=== PATIENT | female | born 1960 | race Caucasian/White ===

== ENCOUNTER 2018-07-22 07:45 | Emergency (ER) | payer OTHER ==
[~2018-07-22] VITALS: Ht 157.5 cm; Wt 59.0 kg
--- OUTSIDE RECORDS SUMMARY | ~2018-07-22 | XMS | Clinical Summary ---
Demographics + + + | Address | [address] | | | [place] [address] | + + + | Home Phone | | + + + | Preferred Language | Unknown | + + + | Marital Status | | + + + | Methodist Affiliation | Unknown | + + + | Race | Unknown | + + + | Ethnic Group | Unknown | + + + Author + + + | Author | [facility] | | | and [place] | + + + | Organization | [facility] | | | and [place] | + + + | Address | Unknown | + + + | Phone | Unavailable | + + + Support + + + + + | Name | Relationship | Address | Phone | + + + + + | Juanito Acuna | ECON | [address] | | | | | [place] | | | | | [address] | | + + + + + | Prachi Deleon | ECON | Unknown | | + + + + + Care Team Providers + +------+ + | Care Telephone Directory Deliverer Name | Role | Phone | + +------+ + | Tao Huerta | PP | | | MD | | | + +------+ + Allergies + + + + + + | Active Allergy | Reactions | Severity | Noted | Comments | | | | | Date | | + + + + + + | Bee Venom | Shortness Of Breath | High | 05/18/19 | | | | | | 16 | | + + + + + + | Codeine | Diarrhea, Nausea And | Medium | 05/18/19 | | | | Vomiting | | 16 | | + + + + + + Medications + + + +---------+------+------+-------+ | Medication | Sig | Dispensed | Refills | Star | End | Statu | | | | | | t | Date | s | | | | | | Date | | | + + + +---------+------+------+-------+ | liothyronine | Take 12.5 mcg by | | 0 | | | Activ | | (CYTOMEL) 25 mcg | mouth Daily. | | | | | e | | tablet | | | | | | | + + + +---------+------+------+-------+ | levothyroxine | Take 75 mcg by mouth | | 0 | | | Activ | | (SYNTHROID, | every morning | | | | | e | | LEVOTHROID) 75 MCG | (before breakfast). | | | | | | | tablet | | | | | | | + + + +---------+------+------+-------+ | Multiple | Take 1 tablet by | | 0 | | | Activ | | Vitamins-Minerals | mouth Daily. | | | | | e | | (CENTRUM SILVER | | | | | | | | ULTRA WOMENS) TABS | | | | | | | + + + +---------+------+------+-------+ | alendronate | Take 70 mg by mouth | | 0 | 05/0 | | Activ | | (FOSAMAX) 70 mg | every 7 days. | | | 20 | | e | | tablet | Patient takes | | | 17 | | | | | medication every | | | | | | | | Wednesday | | | | | | + + + +---------+------+------+-------+ | | Take by mouth | | 0 | | | Activ | | Glucosamine-Chondroi | Daily. | | | | | e | | tin (OSTEO BI-FLEX | | | | | | | | REGULAR STRENGTH PO) | | | | | | | + + + +---------+------+------+-------+ | Calcium | Take 1,200 mg by | | 0 | | | Activ | | Carbonate-Vit D-Min | mouth Daily. | | | | | e | | (CALCIUM 1200 PO) | | | | | | | + + + +---------+------+------+-------+ | docusate calcium | Take 240 mg by mouth | | 0 | | | Activ | | (STOOL SOFTENER) 240 | once. | | | | | e | | mg capsule | | | | | | | + + + +---------+------+------+-------+ | oxyCODONE | Take 0.5-1 tablets | 90 | 0 | 11/1 | | Activ | | (ROXICODONE) 15 mg | by mouth every 4 | tablet | | 4/20 | | e | | immediate release | hours as needed for | | | 17 | | | | tablet | Pain. | | | | | | + + + +---------+------+------+-------+ | diazePAM (VALIUM) | Take 1 tablet by | 90 | 0 | 11/1 | | Activ | | 5 mg tablet | mouth every 6 hours | tablet | | 4/20 | | e | | | as needed for Muscle | | | 17 | | | | | spasms. 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 - Oct 2016 | 11/08/2016 | + + + | H/O Cervical Fusion ACDF C3-5 2015 | 03/03/2016 | + + + + + | Overview: C3-4, C4-5 Anterior Cervical Discectomy W/ Fusion | | And Plating 07/05/2015 | + + + + + | Smoker - Daily | 03/03/2016 | + + + | H/O Bee sting allergy | 03/03/2016 | + + + | Dysphagia - Feb 2016 | 03/03/2016 | + + + | Spinal stenosis, cervical region | | + + + | Arthralgia of multiple sites | | + + + | Hiatal hernia | | + + + | Primary hypothyroidism | | + + + | Vitamin D deficiency | | + + + | Lumbago | | + + + | Cervicalgia | | + + + | Pain in thoracic spine | | + + + | History of tobacco use | | + + + | Brachial neuritis or radiculit due to rupt cervical intervertebr | | | disc | | + + + Family History + + +------+ + | Medical History | Relation | Name | Comments | + + +------+ + | Hypertension | Brother | | | + + +------+ + | Alcohol abuse | Brother | | | + + +------+ + | Alcohol abuse | Brother | | | + + +------+ + | Alcohol abuse | Father | | | + + +------+ + | Hypertension | Father | | | + + +------+ + | Stroke | Father | | | + + +------+ + | Arthritis | Mother | | | + + +------+ + | Heart disease | Mother | | | + + +------+ + | Hypertension | Mother | | | + + +------+ + + +------+ + + | Relation | Name | Status | Comments | + +------+ + + | Brother | | Alive | | + +------+ + + | Brother | | | | + +------+ + + | Brother | | | | + +------+ + + | Brother | | | | + +------+ + + | Brother | | | | + +------+ + + | Child | | Alive | | + +------+ + + | Child | | Alive | | + +------+ + + | Father | | | | | | | (Age | | | | | 72) | | + +------+ + + | Mother | | | BOWEL [employer]STRUCTION | | | | (Age | | | | | 71) | | + +------+ + + Social History + + + +--------+ + | Tobacco Use | Types | Packs/Day | Years | Date | | | | | Used | | + + + +--------+ + | Former Smoker | Cigarettes | 1 | 40 | 04/29/1975 - | | | | | | 03/29/2016 | + + + +--------+ + + +---+---+---+ | Smokeless Tobacco: | | | | | Never Used | | | | + +---+---+---+ + + | Comments: Smokes every robin | + + + + +---------+ + | Alcohol Use | Drinks/We | oz/Week | Comments | | | ek | | | + + +---------+ + | No | 7 | 4.2 | Patient has recently stopped drinking in | | | Glasses | | the last four weeks 02/09/17 | | | of wine | | | | | 0 | | | | | Standard | | | | | drinks or | | | | | | | | | | equivalen | | | | | t | | | + + +---------+ + + + + | Sex Assigned at | Date Recorded | | | | + + + | Not on file | | + + + + + + + | Job Start Date | Occupation | Industry | + + + + | Not on file | Not on file | Not on file | + + + + + + + + | Travel History | Travel Start | Travel End | + + + + + + | No recent travel history available. | + + Last Filed Vital Signs + + + + | Vital Sign | Reading | Time Taken | + + + + | Blood Pressure | 121/64 | 02/09/2017799 PST | + + + + | Pulse | 78 | 02/09/2017799 PST | + + + + | Temperature | 36.9 C (98.4 F) | 11/12/201637 PDT | + + + + | Respiratory Rate | 16 | 11/12/2016736 PDT | + + + + | Oxygen Saturation | 98% | 11/12/2016736 PDT | + + + + | Inhaled Oxygen | - | - | | Concentration | | | + + + + | Weight | 53.1 kg (117 lb) | 02/09/2017799 PST | + + + + | Height | 152.4 cm (5') | 02/09/2017799 PST | + + + + | Body Mass Index | 22.85 | 02/09/2017799 PST | + + + + Plan of Treatment + + + + + | Health Maintenance | Due Date | Last Done | Comments | + + + + + | Hepatitis C | | | | | Screening | 3 | | | + + + + + | Vaccine: | | | | | Dtap/Tdap/Td (1 - | 2 | | | | Tdap) | | | | + + + + + | Cervical Cancer | | | | | Screening (Pap) | 3 | | | + + + + + | Breast Cancer | | | | | Screening (Ages | 3 | | | | 50-74) | | | | + + + + + | Colorectal Cancer | | | | | Screening | 3 | | | | (Colonoscopy) | | | | + + + + + | Vaccine: Zoster (1 | | | | | of 2) | 3 | | | + + + + + | Lung Cancer | | | | | Screening | 8 | | | + + + + + | Vaccine: Influenza | | | | | (Season Ended) | 9 | | | + + + + + Implants + +--------+--------+ +--------+--------+--------+ | Implanted | Type | Area | Manufacture | Device | Shelf | Model | | | | | r | | Expira | / | | | | | | Identi | tion | Serial | | | | | | fier | Date | / Lot | + +--------+--------+ +--------+--------+--------+ | Imp Spn Spcr 8x11mm - | Generi | N/A: | [employer] - | | 04/02/ | [id number] | | [id number]: Qty: 1 on | c | Spine | MEDT | | 2023 | 1 / | | 07/05/2015 by Zac Smith | | Antonyic | | | | /[id number] | | DO Jennifer | | al | | | | 864 | + +--------+--------+ +--------+--------+--------+ | Strut Anatomic Peek [id number] | Generi | N/A: | [employer] - | | 03/01/ | [id number] | | - [id number]: Qty: 1 | c | Spine | MEDT | | 2022 | 1 / | | on 07/05/2015 by Sarah, | Prashanth Tolbert | | | | /[id number] | | Zac Rodriguez DO | | al | | | | | + +--------+--------+ +--------+--------+--------+ | Imp Spn Spcr 8x11mm - | Generi | N/A: | [employer] - | | 09/26/ | [id number] | | [id number]: Qty: 1 on | c | Spine | MEDT | | 2022 | 1 / | | 07/05/2015 by Zac Smith | | Cervic | | | | /[id number] | | A DO | | al | | | | 876 | + +--------+--------+ +--------+--------+--------+ | Pablito Precut Ti 3.5x50mm - | Generi | N/A: | [employer] - | | | [id number] | | [id number]: Qty: 2 on | c | Spine | MEDT | | | 0 / / | | 11/09/2016 by Zac Smith | | Antonyic | | | | | | Jennifer DO | | al | | | | | + +--------+--------+ +--------+--------+--------+ | Michael Herrmann Pls 1cc Aseptic | Graft | N/A: | [employer] - | | 01/22/ | [id number] | | - [id number]: Qty: | | Spine | MEDT | | 2017 | | | 1 on 07/05/2015 by Sarah, | | Antonyic | | | | /[id number] | | Zac Rodriguez DO | | al | | | | 7-167 | | | | | | | | / | + +--------+--------+ +--------+--------+--------+ | Putty [place] 10cc Dbm - | Graft | N/A: | [employer] - | | 07/20/ | [id number] | | [id number]: Qty: 1 | | Spine | MEDT | | 2020 | | | on 11/09/2016 by Sarah, | | Tomasz | | | | /[id number] | | Zac Rodriguez DO | | al | | | | 7-040 | | | | | | | | / | + +--------+--------+ +--------+--------+--------+ | Plate Cerv [place] Trans | Plate | N/A: | [employer] | | | [id number] | | 40mm - [id number]: | | Spine | DANEK - DIV | | | 0 / / | | Qty: 1 on 07/05/2015 by | | Tomasz | [employer] | | | | | Zac Smith DO | | al | - SFDK | | | | + +--------+--------+ +--------+--------+--------+ | Plate Ant [place] Cerv | Plate | N/A: | [employer] - | | | [id number] | | 37.5mm - [id number]: | | Spine | MEDT | | | 7 / / | | Qty: 1 on 11/09/2016 by | | Antonyic | | | | | | Zac Smith DO | | al | | | | | + +--------+--------+ +--------+--------+--------+ | Screw Slf-Drl V/A 4.0x16mm - | Screw | N/A: | [employer] | | | [id number] | | [id number]: Qty: 2 on | | Spine | DANEK - DIV | | | 6 / / | | 07/05/2015 by Zac Smith | | Cervic | [employer] | | | | | A, DO | | al | - SFDK | | | | + +--------+--------+ +--------+--------+--------+ | Screw Slf-Drl V/A 4.0x15mm - | Screw | N/A: | SOFAMOR | | | [id number] | | [id number]: Qty: 2 on | | Spine | DANEK - DIV | | | / / | | 07/05/2015 by Zac Smith | | Cervic | [employer] | | | | | A, DO | | al | - SFDK | | | | + +--------+--------+ +--------+--------+--------+ | Screw Slf-Dr V/A 4.5x15mm - | Screw | N/A: | [employer] - | | | [id number] | | [id number]: Qty: 4 on | | Spine | MEDT | | | 5 / / | | 11/09/2016 by Zac Smith | | Tomasz | | | | | | DO Jennifer | | al | | | | | + +--------+--------+ +--------+--------+--------+ | Screw Typecasting Machine Operator-Flaco Vertex 3.5x12mm | Screw | N/A: | SOFAMOR | | | [id number] | | - [id number]: Qty: 1 | | Spine | DANEK - DIV | | | 2 / / | | on 11/09/2016 by Sarah, | | oTmasz | [employer] | | | | | Zac Rodriguez DO | | claudia | - SFDK | | | | + +--------+--------+ +--------+--------+--------+ | Screw Typecasting Machine Operator-Flaco Vertex 3.5x14mm | Screw | N/A: | [employer] - | | | [id number] | | - [id number]: Qty: 4 | | Spine | MEDT | | | 4 / / | | on 11/09/2016 by Sarah, | | Tomasz | | | | | | Zac Rodriguez DO | | al | | | | | + +--------+--------+ +--------+--------+--------+ | Screw Typecasting Machine Operator-Flaco Vertex 3.5x16mm | Screw | N/A: | [employer] - | | | [id number] | | - [id number]: Qty: 3 | | Spine | MEDT | | | 6 / / | | on 11/09/2016 by Sarah, | | Tomasz | | | | | | Zac Rodriguez DO | | al | | | | | + +--------+--------+ +--------+--------+--------+ | Set Screw Vertex Max - | Screw | N/A: | SOF[facility]OR | | | [id number] | | [id number]: Qty: 8 on | | Spine | DANEK - DIV | | | 5 / / | | 11/09/2016 by Zac Smith | | Tomasz | [employer] | | | | | DO Jennifer | | al | - SFDK | | | | + +--------+--------+ +--------+--------+--------+ + +-------+--------+ +--------+--------+--------+ | Explanted | Type | Area | Manufacture | Device | Shelf | Model | | | | | r | | Expira | / | | | | | | Identi | tion | Serial | | | | | | fier | Date | / Lot | + +-------+--------+ +--------+--------+--------+ | Screw Typecasting Machine Operator-Flaco Vertex 3.5x12mm | Screw | N/A: | SOF[employer]OR | | | [id number] | | - [id number]: Qty: 1 | | Spine | DANEK - DIV | | | 2 / / | | on 11/09/2016 | | Cervic | [employer] | | | | | | | al | - SFDK | | | | + +-------+--------+ +--------+--------+--------+ Results Not on filefrom Last 3 Months Insurance + +--------+ +--------+ +---------+------+ | Payer | Benefi | Subscriber | Effect | Phone | Address | Type | | | t Plan | ID | javier | | | | | | / | | Dates | | | | | | Group | | | | | | + +--------+ +--------+ +---------+------+ | [facility] | PHP | [id number] | 03/29/19 | [phone] | | PPO | | PLAN | PERSON | | 16-Pre | 5 | | | | | AL | | sent | | | | | | OPEN | | | | | | | | OPTION | | | | | | + +--------+ +--------+ +---------+------+ + +--------+ +--------+ + + | Guarantor Name | Accoun | Relation to | Date | Phone | Billing Address | | | t Type | Patient | of | | | | | | | | | | + +--------+ +--------+ + + | Mallory Acuna | Person | Self [birth year] | [address] | | | al/Fam | | 1961 | [phone] | [place] [address] | | | maik | | | 4 (Home) | | + +--------+ +--------+ + + Advance Directives Patient has advance care planning documents, and code status on file. For more information, please contact:[facility] [place] [facility] [place] [address] + + + + + | Code Status | Date | Date | Comments | | | Activated | Inactivated | | + + + + + | Full Code | 11/09/2016 | 11/12/2016 | | | | 11:36 | 12:52 | | + + + + + + + + +---+ | | | | | + + + +---+ | Full Code | 07/05/2015 | 07/06/2015 | | | | 15:32 | 13:38 | | + + + +---+"
--- OUTSIDE RECORDS SUMMARY | ~2018-07-22 | XMS | Clinical Summary ---
Demographics + + + | Address | [address] | | | [place] [address] | + + + | Home Phone | | + + + | Preferred Language | Unknown | + + + | Marital Status | | + + + | Voodoo Affiliation | Unknown | + + + | Race | Unknown | + + + | Ethnic Group | Unknown | + + + Author + + + | Author | [facility] | | | and [place] | + + + | Organization | [facility] | | | and [place] | [...] [place] | | | | | [address] | | + + + + + | Prachi Deleon | ECON | Unknown | | + + + + + Care Team Providers + +------+ + | Care Examination Scorer Name | Role | Phone | + [...] | [employer] - | | 04/02/ | [id number] | | [id number]: Qty: 1 on | c | Spine | MEDT | | 2023 | 1 / | | 07/05/2015 by Zac Smith | | Antonyic | | | | /[id number] | | DO Jennifer | | al | | | | 864 | + +--------+--------+ +--------+--------+--------+ | Strut Anatomic Peek [id number] | Generi | N/A: | [employer] - | | 03/01/ | [id number] | | - [id number]: Qty: 1 | c | Spine | MEDT | | 2022 | 1 / | | on 07/05/2015 by Sarah, | Prashanth Tolbert | | | | /96BC | | Zac Rodirguez DO | | al | | | | | + +--------+--------+ +--------+--------+--------+ | Imp Spn Spcr 8x11mm - | Generi | N/A: | [employer] - | | 09/26/ | [id number] | | [id number]: Qty: 1 on | c | Spine | MEDT | | 2022 | 1 / | | 07/05/2015 by Zac Smith | | Cervic | | | | /[id number] | | A DO | | al | | | | 876 | + +--------+--------+ +--------+--------+--------+ | Pablito Precut Ti 3.5x50mm - | Generi | N/A: | [employer] - | | | [id number] | | [id number]: Qty: 2 on | c | Spine | MEDT | | | 0 / / | | 11/09/2016 by Zac Smith | | Antonyic | | | | | | Jennifer DO | | al | | | | | + +--------+--------+ +--------+--------+--------+ | Michael Herrmann Pls 1cc Aseptic | Graft | N/A: | [employer] - | | 01/22/ | [id number] | | - [id number]: Qty: | | Spine | MEDT | | 2017 | | | 1 on 07/05/2015 by Sarah, | | Antonyic | | | | /[id number] | | Zac Rodriguez DO | | al | | | | 7-167 | | | | | | | | / | + +--------+--------+ +--------+--------+--------+ | Putty [place] 10cc Dbm - | Graft | N/A: | [employer] - | | 07/20/ | [id number] | | [id number]: Qty: 1 | | Spine | MEDT | | 2020 | | | on 11/09/2016 by Sarah, | | Tomasz | | | | /[id number] | | Zac Rodriguez DO | | al | | | | 7-040 | | | | | | | | / | + +--------+--------+ +--------+--------+--------+ | Plate Cerv [place] Trans | Plate | N/A: | SOFAMOR | | | [id number] | | 40mm - [id number]: | | Spine | DANEK - DIV | | | 0 / / | | Qty: 1 on 07/05/2015 by | | Tomasz | [employer] | | | | | Zac Smith DO | | al | - SFDK | | | | + +--------+--------+ +--------+--------+--------+ | Plate Ant [place] Cerv | Plate | N/A: | [employer] - | | | 478824 | | 37.5mm - [id number]: | | Spine | MEDT | | | 7 / / | | Qty: 1 on 11/09/2016 by | | Antonyic | | | | | | Zac Smith DO | | al | | | | | + +--------+--------+ +--------+--------+--------+ | Screw Slf-Drl V/A 4.0x16mm - | Screw | N/A: | [facility] | | | [id number] | | [id number]: Qty: 2 on | | Spine | DANEK - DIV | | | 6 / / | | 07/05/2015 by Zac Smith | | Cervic | [employer] | | | | | A, DO | | al | - SFDK | | | | + +--------+--------+ +--------+--------+--------+ | Screw Slf-Drl V/A 4.0x15mm - | Screw | N/A: | SOFAMOR | | | [id number] | | [id number]: Qty: 2 on | | Spine | DANEK - DIV | | | / / | | 07/05/2015 by Zac Smith | | Cervic | [employer] | | | | | A, DO | | al | - SFDK | | | | + +--------+--------+ +--------+--------+--------+ | Screw Slf-Dr V/A 4.5x15mm - | Screw | N/A: | [employer] - | | | 650409 | | [id number]: Qty: 4 on | | Spine | MEDT | | | 5 / / | | 11/09/2016 by Zac Smith | | Tomasz | | | | | | DO Jennifer | | al | | | | | + +--------+--------+ +--------+--------+--------+ | Screw Pipe Supervisor-Flaco Vertex 3.5x12mm | Screw | N/A: | SOFAMOR | | | [id number] | | - [id number]: Qty: 1 | | Spine | DANEK - DIV | | | 2 / / | | on 11/09/2016 by Sarah, | | Tomasz | [employer] | | | | | Zac Rodriguez DO | | claudia | - SFDK | | | | + +--------+--------+ +--------+--------+--------+ | Screw Pipe Supervisor-Flaco Vertex 3.5x14mm | Screw | N/A: | [employer] - | | | [id number] | | - [id number]: Qty: 4 | | Spine | MEDT | | | 4 / / | | on 11/09/2016 by Sarah, | | Tomasz | | | | | | Zac Rodriguez DO | | al | | | | | + +--------+--------+ +--------+--------+--------+ | Screw Pipe Supervisor-Flaco Vertex 3.5x16mm | Screw | N/A: | [employer] - | | | [id number] | | - [id number]: Qty: 3 | | Spine | MEDT | | | 6 / / | | on 11/09/2016 by Sarah, | | Tomasz | | | | | | Zac Rodriguez DO | | al | | | | | + +--------+--------+ +--------+--------+--------+ | Set Screw Vertex Max - | Screw | N/A: | SOFAMOR | | | [id number] | | [id number]: Qty: 8 on | | Spine | [...] Lot | + +-------+--------+ +--------+--------+--------+ | Screw Pipe Supervisor-Flaco Vertex 3.5x12mm | Screw | N/A: | SOFAMOR | | | [id number] | | - [id number]: Qty: 1 | | Spine | DANEK [...] | | + +--------+ +--------+ +---------+------+ | [facility] | PHP | [id number] | 03/29/19 | [phone] | | PPO [...] | | al/Fam | | 1961 | [phone] | [place] [address] | | | maik | | | 4 (Home) | | + +--------+ +--------+ + + Advance Directives Patient has advance care planning documents, and code status on file. For more information, please [facility] [place] [address] + + + + + | Code [...]
[~2018-07-22 07:45] MED LIST: CENTRUM SILVER1 EAC5 PO; CYTOMEL5 MCG PO; DIAZEPAM5 MG PO; LEVOFLOXACIN500 MG PO; LEVOTHYROXINE75 MCG PO; LIOTHYRONINE S25 MCG PO; OXYCODONE HCL15 MG PO; PREDNISONE20 MG PO; SUDOGEST120 MG PO; SYNTHROID100 MCG PO; VITAMIN D5000 UNIT PO
--- OUTSIDE RECORDS SUMMARY | 2018-07-22 07:48 | XMS ---
Shane Notification: LUCERO [employer] Security Production Supv Events No recent Security Events currently on file CRITERIA MET - SHERLYNP CARE PROVIDERS Tao Huerta Current PHONE: Unknown Yifan has no Care Guidelines for this patient. EScot VISIT COUNT (12 MO.) 1 JEVON Cooley TOTAL 1 NOTE: Visits indicate total known visits. ED/UCC VISIT TRACKING (12 MO.) 07/22/2018 07:[address] [facility] TYPE: Emergency COMPLAINT: - NECK PAIN/NO INJURY INPATIENT VISIT TRACKING (12 MO.) No inpatient visits to display in this time frame [id number]
[2018-07-22] MEDS ORDERED: GABAPENTIN400 MG PO (11:55)
== END 2018-07-22 12:12 | disposition home or self-care (01) ==
LOC: ED 07:45
DX: M79.2 Neuralgia and neuritis, unspecified (principal); F17.200 Nicotine dependence, unspecified, uncomplicated; Z87.01 Personal history of pneumonia (recurrent); Z91.038 Other insect allergy status; Z88.5 Allergy status to narcotic agent; Z79.899 Other long term (current) drug therapy
CPT/HCPCS: 72141; 72146; 96374; 96375; 96376; 99283-25; J1170; J1885; J3360

== ENCOUNTER 2020-09-12 10:54 | Day surgery (SDC) | payer OTHER ==
[~2020-09-12] VITALS: Ht 157.5 cm; Wt 50.0 kg
[~2020-09-12 10:54] MED LIST changes: +GABAPENTIN400 MG PO
[2020-09-12] MEDS ORDERED: HYDROCHLOROTH12.5 MG PO (11:20)
--- NOTE | 2020-09-12 12:39 | NUR ---
09/12/20 1239 Tanner,Juliet 1230 PT ARRIVED TO PACU AND ROLLED TO BACK WITH RNS HELP. PT AWAKE AND DENIES PAIN AND NAUSEA. PT ON 2L NC. 1232 O2 REMOVED.
--- NOTE | 2020-09-26 11:00 | PATH ---
[facility] [address] [place], [place] [address] Signed THIS IS AN ADDENDUM REPORT SPECIMEN(S): C COMP PLASMA CELL FLOW, BM EDTA SPECIMEN(S): A BONE MARROW - CORE SPECIMEN(S): B BONE MARROW - ASPIRATION CLINICAL HISTORY: Bone marrow biopsy. 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 C90.00 (multiple myeloma not having achieved remission) DIAGNOSIS SUMMARY: A. Peripheral blood, smear: - Leukocytosis with absolute neutrophilia, and relative and absolute eosinophilia. - Moderate thrombocytosis. B. Bone marrow, aspirate, clot section, and core biopsy: - Normocellular marrow with trilineage hematopoiesis and increased eosinophils and eosinophilic precursors. - No increase in blasts. - No increase in reticulin fibrosis (MF-0 of 3). - See Comment. DIAGNOSTIC COMMENT: The patient's history of weight loss, joint pain, easy bruisability, and capillary leak syndrome is noted. The peripheral blood shows leukocytosis (with a prominent eosinophilia and mild absolute neutrophilia) and moderate thrombocytosis. The bone marrow is normocellular age (30-40%), and demonstrates an increase in eosinophils and eosinophilic precursors. Blasts are not increased, and no significant morphologic dysplasia is seen. There is no morphologic or immunophenotypic evidence of a plasma cell neoplasm. A Congo Red stain is negative for amyloid. A few scattered mast cells (3-4%) are detected by a tryptase immunohistochemical stain. No significant mast cell aggregates, spindling in greater than 25%, or expression of CD25 is seen to suggest systemic mastocytosis. No atypical CD4 positive/CD3 negative T-cell population is detected by flow cytometry to suggest lymphocytic variant of hypereosinophilic syndrome. Possible reactive causes of eosinophilia include allergy/atopia (e.g. angioedema with eosinophilia), infection, drug reaction, autoimmune disease etc. Clinical and laboratory correlation is PATIENT NAME: LUCERO ARCEO PATHOLOGY DATE OF : 64 REPORT #: [id number] PHYSICIAN: BENI PATHOLOGY PCP: KELTON PHIPPS MD REPORT IS CONFIDENTIAL AND NOT TO BE RELEASED WITHOUT AUTHORIZATION [facility] [address] [place], [place] [address] Signed recommended. To further investigate possible neoplastic causes of eosinophilia and/or thrombocytosis, karyotype, JAK2 molecular studies (with reflex to CALR and MPL), cKit molecular studies, and eosinophilia FISH panel will be pursued, with results to be reported in an addendum. These results were discussed with Dr. Harp by Dr. Norton on 09/16/2020. PERIPHERAL BLOOD: HEMOGRAM (09/12/2020): WBC 19.5 K/uL, RBC 4.89 M/uL, HGB 15.0 g/dL, HCT 45.1%, MCV 92.2 fL, MCH 31 pg, MCHC 33 g/dL, RDW 14.1%, PLT 625 K/uL. MANUAL DIFFERENTIAL COUNT (100 cells, performed by a pathologist): Segmented neutrophils 48%, band neutrophils 3%, lymphocytes 3%, monocytes 7%, eosinophils 38%, basophils 1%. The red cells are normal in number and are normochromic and normocytic, although the borderline increased hematocrit level is noted. Anisopoikilocytosis is not prominent. Polychromasia is not significantly increased, and circulating nucleated red blood cells are not identified. Leukocytes are increased in number and are accounted for predominantly by segmented neutrophils and numerous eosinophils. There is a relative and absolute eosinophilia. No significant dysplastic features are seen in the neutrophils. Lymphocytes include small mature lymphocytes and large granular lymphocytes. Circulating blasts are not detected. Platelets are moderately increased in number and show normal morphology. BONE MARROW: BONE MARROW ASPIRATE SMEARS: The bone marrow aspirate smears show abundant cellular spicules. Maturing myeloids appear relatively increased in comparison to maturing erythroids, and there is a prominent increase in eosinophils and eosinophilic precursors. Maturing erythroids are decreased in number and show full-spectrum maturation. [place] dysplastic features are not appreciated. Blasts are not increased. Megakaryocytes are present in adequate number and show large, lobulated nuclei without significant atypia appreciated. MANUAL DIFFERENTIAL COUNT (200 cells): Blasts 0.5%, promyelocytes 2%, myelocytes 21%, metamyelocytes 12.5%, segs/bands 19.5%, erythroids 19.5%, lymphocytes 6%, plasma cells 1%, monocytes 2%, eosinophils (mature) 16% BONE MARROW CORE BIOSPY AND CLOT SECTIONS: The bone marrow core biopsy is normocellular for age (30-40%). The estimated M:E ratio is approximately 5:1, with both myeloids and erythroids showing PATIENT NAME: LUCERO ARCEO PATHOLOGY DATE OF : 64 REPORT #: [id number] PHYSICIAN: BENI PATHOLOGY PCP: KELTON PHIPPS MD REPORT IS CONFIDENTIAL AND NOT TO BE RELEASED WITHOUT AUTHORIZATION [address] [address] Signed full-spectrum maturation. There is a prominent increase in eosinophils and eosinophilic precursors. Blasts are not increased. Megakaryocytes are seen distributed throughout the marrow space, without significant morphologic atypia noted. Trabecular bone is normal. The clot section shows numerous fragments of marrow with similar findings as the core biopsy. SPECIAL STAINS (with adequate controls): - Iron stain (aspirate smear): Stainable iron is present, appears adequate to mildly increased; no ring sideroblasts identified. - Iron stain (block B1): Stainable iron is present, appears adequate; no ring sideroblasts identified. - Congo red (block A1): Negative for amyloid deposition. - Reticulin (block A1): No significant increase in reticulin fibrosis (MF-0 of 3). IMMUNOHISTOCHEMICAL STAINS (blocks A1 and B1): - CD34: A few rare cells and vessels staining; no increase in blasts. Some nonspecific granular cytoplasmic staining seen in eosinophils, particularly on clot section. - CD117: A few scattered blats and darkly staining mast cells seen, scattered; no discrete aggregation appreciated, although some spindled mast cells are present. Less than 5% of overall marrow cellularity. IMMUNOHISTOCHEMICAL STAINS (block A1): - Tryptase: A few scattered mast cells staining, approximately 3-4% of overall marrow cellularity, no significant aggregation, few spindled forms, less than 25%. - CD138: Positive in scattered and small clusters of plasma cells, approximately 5% of overall marrow cellularity. - Centenary: Positive in subset of plasma cells, polytypic pattern. - Lambda: Positive in subset of plasma cells, polytypic pattern. - CD2: Few scattered and small clusters of T-cells staining, small in size. - CD25: Essentially negative. IN SITU HYBRIDIZATION STAINS (block A1): - Centenary: Rare plasma cells staining. - Lambda: Rare plasma cells staining. FLOW CYTOMETRY: Bone marrow, flow cytometry: - Small population of polytypic plasma cells identified. - No aberrant T-cell population detected. PATIENT NAME: LUCERO ARCEO PATHOLOGY DATE OF : 64 REPORT #: [id number] PHYSICIAN: BENI PATHOLOGY PCP: KELTON PHIPPS MD REPORT IS CONFIDENTIAL AND NOT TO BE RELEASED WITHOUT AUTHORIZATION [facility] [address] [place], [place] [address] Signed - Paucity of B-cells. - No increase in blasts. - See Comment. COMMENT: Flow cytometry of the bone marrow specimen demonstrates a small plasma cell population (0.4%) which shows polytypic light chain expression. No evidence of an abnormal lymphocyte or blast population is detected. A minute mast cell population is detected (0.1% of all events) lacking expression of CD25. Full interpretation of these results requires correlation with morphologic and clinical findings, noting that flow cytometry frequently underestimates plasma cell percentages. FLOW CYTOMETRY ANALYSIS: FLOW DIFFERENTIAL (% Total CD45 vs. SSC gating): Myeloid 90%; Lymphoid 2%; Monocyte 1%; Dim CD45/Blast: 0.8%. Cell Count: 4.5 x 10*3/uL. POPULATION ANALYSIS: BLASTS: Analysis of the dim CD45 gate demonstrates 0.8% myeloblasts by CD34/CD117. LYMPHOID CELLS: The lymphocyte gate comprises 2% of total events and includes 86% T-cells with a CD4:CD8 ratio of 1.0:1 and normal benton T-cell antigen expression. B-cells are essentially absent. The remainders are NK-cells. MYELOID CELLS: The myeloid population comprises 90% of the total events. No aberrant immunophenotypic expression is detected. MONOCYTES: The monocyte population comprises 1% of the total events. Monocytes are not increased. No aberrant immunophenotypic expression is detected. PLASMA CELLS: A clinical history of multiple myeloma is noted. For this reason, select additional antibodies are run to further characterize the plasma cells. 0.4% polyclonal plasma cells are detected (n=196) expressing CD45 DIM-MOD, CD38 BR, CD138 MOD-BR, CD19 DIM-MOD (partial) and CD56 MOD (minor subset) while negative for CD20 with a ckappa:clambda ratio of 1.4:1. MAST CELLS: 0.1% mast cells are detected (n=192) expressing CD2 DIM (minor subset) while negative for CD25. Initial Antibodies Used: KAPPA, LAMBDA, CD20, CD10, CD19, CD23, CD38, FMC7, CD16, CD56, CD8, CD5, CD2, CD4, CD7, CD3, CD14, CD33, CD13, HLADR, CD34, CD117, CD15, CD45. Additional Antibodies (necessary for further plasma cell analysis): ckappa, clambda, CD138. PATIENT NAME: LUCERO ARCEO PATHOLOGY DATE OF : 64 REPORT #: [id number] PHYSICIAN: BENI PATHOLOGY PCP: KELTON PHIPPS MD REPORT IS CONFIDENTIAL AND NOT TO BE RELEASED WITHOUT AUTHORIZATION [facility] [address] [place] [id number] Signed Additional Antibodies (necessary for further mast cell analysis): CD25. Total Antibodies Used: 28. JNB FINAL DIAGNOSIS PERFORMED BY: Akanksha Norton MD, Sep 14 2020 10:00AM CYTOGENETICS: Pending, to be reported by addendum. FISH ANALYSIS: Pending, to be reported by addendum. MOLECULAR / PCR: Pending, to be reported by addendum. GROSS DESCRIPTION: Two specimens are received in two containers, labeled "TC." A. The specimen, labeled "TC, core," is received in formalin and consists of one cylindrical bone core fragment measuring 0.2 in diameter and 1.7 cm in length. The specimen is entirely submitted in cassette (A1) following decalcification in Immunocal. B. The specimen, labeled "TC, clot," is received in formalin and consists of thickened clot material measuring 3.0 x 2.5 x 0.4 cm in aggregate. The specimen is filtered and entirely submitted in cassette (B1). Bone marrow inventory also includes: Two peripheral smears, one EDTA tube bone marrow, two heparin tubes. AT (under the direct supervision of a pathologist) The Gross Description was prepared using a voice recognition system. The report was reviewed for accuracy; however, sound-alike word errors, addition and/or deletions may occur. If there is any question about this report, please contact Client Services. ADDITIONAL NOTES: Immunohistochemical and/or in situ hybridization studies were performed on this case with the appropriate positive controls that react as expected. This test was developed and its performance characteristics determined by [employer]. It has not been cleared or approved by the U.S. Food and Drug Administration. The FDA has determined that such clearance or approval is not necessary. This test is used for clinical purposes. It should not be regarded as investigational or for research. [facility] is certified under the PATIENT NAME: LUCERO ARCEO PATHOLOGY DATE OF : 64 REPORT #: [id number] PHYSICIAN: BENI MURRAY PCP: KELTON PHIPPS MD REPORT IS CONFIDENTIAL AND NOT TO BE RELEASED WITHOUT AUTHORIZATION [facility] [address] [place], [place] [address] Signed Clinical Laboratory Improvement Amendments of 1988 (CLIA) as qualified to perform high complexity clinical laboratory testing. This assay has not been validated for specimens that have been decalcified. In this case, certain antibodies were performed by both immunohistochemistry and flow cytometry analysis because flow cytometry analysis did not fully explain all the light microscopic findings. Immunohistochemistry aided in the analysis. Both methods are deemed medically necessary in this case. This test was developed and its performance characteristics determined by [facility]. It has not been cleared or approved by the US Food and Drug Administration. The FDA does not require this test to go through premarket FDA review. This test is used for clinical purposes. It should not be regarded as investigational or for research. This laboratory is certified under the Clinical Laboratory Improvement Amendments (CLIA) as qualified to perform high complexity clinical laboratory testing. PERFORMING LABORATORY: The technical and professional components were performed by [facility], [address] [place] [address] (Technical Internship: Tejas Thornton D.O.; CLIA#: [id number]). Professional interpretation was performed by [facility], [address] [place] [address] (Technical Internship: Tejas Thornton D.O.; CLIA#: [id number]). IMAGES: A: [id number] A: [id number] SPECIMEN SOURCE: A. 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 C90.00 (multiple myeloma not having achieved remission) FISH (fluorescence in situ hybridization) RESULT: Not Detected INTERPRETATION: PDGFRA(4q12) rearrangement: Not detected PDGFRB(5q33) rearrangement: Not detected FGFR1(8p11) rearrangement: Not detected. PATIENT NAME: LUCERO ARCEO PATHOLOGY DATE OF : 64 REPORT #: [id number] PHYSICIAN: BENI PATHOLOGY PCP: KELTON PHIPPS MD REPORT IS CONFIDENTIAL AND NOT TO BE RELEASED WITHOUT AUTHORIZATION [facility] [address] [place], [place] [address] Signed JAK2 (9p24) rearrangement: Not detected. Fluorescence in situ hybridization (FISH) analysis was performed using an eosinophilia probe set to detect abnormalities commonly associated with lymphoid and myeloid neoplasms with eosinophilia. All the signals were within the normal reference range. No evidence of PDGFR alpha, PDGFR beta, FGFR1, or JAK2 gene rearrangement is detected. This represents a NORMAL result. ISCN: Probe Set Detail: PDGFRa (4q12): nuc elizabeth(FIP1L1,CHIC2,PDGFRA)x2[200] FGFR1 (8p11): nuc elizabeth(APKQ8k6)[200] PDGFRb (5q33): nuc elizabeth(PDGFRBx2)[200] JAK2 (9p24): nuc elizabeth(JAK2x2)[200] References: [place] of Genetics and Cytogenetics in Oncology and Hematology [email or web address] FISH Analysis Summary: Nuclei Scored: 200 Scoring Method: Manual; CPT Code 68965 Number of Probe units: 4 Multiplex Cells analyzed: Interphase Probe sets: FGFR1 (8p11), PDGFRa (4q12), PDGFRb (5q33), JAK2 (9p24) ADDITIONAL NOTES: This test was developed and its performance characteristics determined by [facility], [employer]. It has not been cleared or approved by the US Food and Drug Administration. The [employer] DNA probe vendor for this study was [employer]. PERFORMING LABORATORY: The technical component of the FISH testing was performed by [facility], [address] [place], [place] [address] [address] (Technical Internship: Tejas Thornton D.O.; CLIA#: [id number]). FINAL DIAGNOSIS PERFORMED BY: Danny Gilbert MD. MPH, Pathologist Sep 18 2020 3:12PM REASON FOR ADDENDUM: To add results of additional testing. To add results of additional testing. Bone marrow aspirate, cytogenetics oncology chromosome analysis: Karyotype: 46,XX[13] PATIENT NAME: LUCERO ARCEO PATHOLOGY DATE OF : 64 REPORT #: [id number] PHYSICIAN: BENI MURRAY PCP: KELTON PHIPPS MD REPORT IS CONFIDENTIAL AND NOT TO BE RELEASED WITHOUT AUTHORIZATION [address] [address] Signed Interpretation: Normal female karyotype in thirteen cells. See comment. Comment: Because of poor mitotic index, only 13 metaphase cells are available for analysis and at a reduced banding level. All material is examined. This study does not exclude the presence of an abnormal clone within standard analysis parameters. Comments: Standard cytogenetic analysis may not detect subtle submicroscopic rearrangements and may not include metaphases from abnormal cell populations with low mitotic rates or present in low levels. Test Detail: Metaphases Counted: 13 Metaphases Analyzed: 13 Metaphases Karyotyped: 2 Culture Type: 48EB Banding Technique: GTG Banding Resolution: 300 CPT Codes: 26853, 90844*, 86739 *Professional interpretation service generally billed directly to carriers by [facility]. The Technical Component Processing of this test was completed at [facility] [place], [address] [place] [address] / [address] / [phone] / CLIA #[id number] / Technical Internship(s): Stephanie Sewell M.D. The Technical Component Analysis of this test was completed at [facility] [address], [address], [place], [place] / [address] / [phone] / CLIA# [id number] / Technical Internship(s): Gerardo Phan MD. The Professional Component of this test was completed at [facility] [place], [address] [place] [address] / [address] / [phone] / CLIA # [id number] / Technical Internship(s): Jv Argueta M.D. (Accession / Case No: [id number] / [id number]). The performance characteristics of this test have been determined by the performing laboratory. This test has not been approved by the FDA. The FDA has determined such clearance or approval is not necessary. This laboratory is CLIA certified to perform high complexity clinical testing. Images that may be included within this report are sales representative rural power of the patient but not all testing in its entirety and should not be used to render a result. The CPT codes provided with our test descriptions are based on AMA guidelines and are for informational purposes only. Correct CPT coding is the sole responsibility of the billing PATIENT NAME: LUCERO ARCEO PATHOLOGY DATE OF : 64 REPORT #: [id number] PHYSICIAN: BENI PATHOLOGY PCP: KELTON PHIPPS MD REPORT IS CONFIDENTIAL AND NOT TO BE RELEASED WITHOUT AUTHORIZATION [facility] [address] [place], [place] [address] Signed constitution party. Please direct any questions regarding coding to the payer being billed. Bone marrow aspirate, JAK2 V617F Mutation Analysis Qualitative: Test: JAK2 V617F Mutation Result: TNP - Test Not Performed Comments: The stability of this sample is out of the acceptable range for testing. Please submit a new sample if clinically indicated. Clinical Significance: The JAK2 V617F mutation has been reported in >80% of the patients with polycythemia vera (PV), 30-50% of patients with either essential thrombocythemia (ET) or primary myelofibrosis (PMF). This mutation is not detected in normal individuals. A small subset of patients with myeloproliferative neoplasms (MPN) that are negative for the JAK2 V617F mutation will harbor JAK2 mutations in exon 12. More rare mutations are detected in exons 13 and 14. JAK2 mutations can be used to differentiate reactive conditions from neoplastic process. Methodology: Total nucleic acid was extracted from patient's plasma or PB/BM cells. The primer pair was designed to encompass the JAK2 V617F point mutation located in chromosome 9p24. The PCR product was then purified and sequenced in both forward and reverse directions using high-sensitivity Renu sequencing which improves the lower detection limit to approximately 1% mutated DNA in a wild-type background. The resulting sequence was compared to GenBank Acc# [id number] sequence. Various factors including quantity and quality of nucleic acid, sample preparation and sample age can affect assay performance. References: 1. Kermit Perdomo, et al. A unique clonal JAK2 mutation leading to constitutive signalling causes polycythaemia vera. Nature. 2005; 434:1144-8. 2. Jeaneth R, et al. A lbop-vx-cviqykyx mutation of JAK2 in myeloproliferative disorders. N Engl J Med. 2005; 352:1779-90. 3. Jose Enrique WEINER, Stefano E, Taurus P, et al; MPD Research Consortium. Prospective identification of high-risk polycythemia vera patients based on JAK2(V617F) allele burden. Leukemia. 2007;21(9):1952-9. PMID: 50773258. The Technical Component Processing, Analysis and Professional Component of this test was completed at [facility], [address] [place] [address] / PATIENT NAME: LUCERO ARCEO PATHOLOGY DATE OF : 64 REPORT #: [id number] PHYSICIAN: BENI MURRAY PCP: KELTON PHIPPS MD REPORT IS CONFIDENTIAL AND NOT TO BE RELEASED WITHOUT AUTHORIZATION [address] [address] Signed [address] / [phone] / LINDA #[id number] / Technical Internship(s): Stephanie Sewell M.D. (Accession / Case No: [id number] / [id number]). The performance characteristics of this test have been determined by [employer]. This test has not been approved by the FDA. The FDA has determined such clearance or approval is not necessary. This laboratory is CLIA certified to perform high complexity clinical testing. Images that may be included within this report are sales representative rural power of the patient but not all testing in its entirety and should not be used to render a result. The CPT codes provided with our test descriptions are based on MolDX and AMA guidelines and are for informational purposes only. Correct CPT coding is the sole responsibility of the billing constitution party. Please direct any questions regarding coding to the payer being billed. To add results of additional testing. Bone marrow aspirate, KIT (c-KIT) mutation analysis: Results: KIT (c-Kit) Mutation: Not Detected Clinical Significance: Screening for KIT (c-KIT) mutations may help to identify patients with tumors that may benefit from receptor tyrosine kinase inhibitors (TKI), but some mutations are associated with primary or secondary resistance to TKI therapy. For example, KIT mutations at codon D816 in exon 17 may be associated with imatinib resistance. Approximately 80% of gastrointestinal stromal tumors (GISTs) have a mutation in KIT. In GISTs, the majority of KIT mutations occur in exon 11 (70%) and exon 9 (10-15%) with infrequent mutations in exons 13 (1-3%) and 17 (<1%). Approximately 2-8% of melanomas harbor KIT mutations, with higher incidence in acral and mucosal melanomas. About 20% of patients with core binding factor acute myeloid leukemia (CBF-AML) have mutations in KIT exons 8 and 17. In CBF-AML, particularly AML with t(8;21), the presence of a KIT mutation is a predictor of decreased remission duration and decreased overall survival. KIT exon 17 D816V mutation has been reported in the majority of patients with systemic mastocytosis and is associated with imatinib resistance. Methodology: Nucleic acid is isolated from cells or microdissection-enriched FFPE tissue. Tumor in FFPE must be present in at least 20% of the tissue. The KIT somatic mutations are tested by [facility] PATIENT NAME: LUCERO ARCEO PATHOLOGY DATE OF : 64 REPORT #: [id number] PHYSICIAN: BENI MURRAY PCP: KELTON PHIPPS MD REPORT IS CONFIDENTIAL AND NOT TO BE RELEASED WITHOUT AUTHORIZATION [facility] [address] [place], [place] [address] Signed bidirectional method. The KIT exons 8, 9, 11, 13 and 17 are analyzed for all possible mutations using GenBank Acce# [id number] as reference. This assay has a typical sensitivity of 10-15% for detecting mutated KIT DNA in a wild-type background. Various factors including quantity and quality of nucleic acid, sample preparation and sample age can affect assay performance. References: 1. Danette C, Dieter LC, Hernandez PP. Core Binding Factor Acute Myeloid Leukemia: New Prognostic Categories and Therapeutic Opportunities. Semin Hematol. 2015;52(3):215-22. PMID: 85249102 2. Georges Z, Americo RL. Perspectives on the evolving state of the art management of gastrointestinal stromal tumours. Transl Gastroenterol Hepatol. 2018;3:21. PMID: 15216621 3. Michael P, Jad Perdomo, Randee K, et al. Advances in the Classification and Treatment of Mastocytosis: Current Status and [place] toward the Future. Cancer Res. 2017;77(6):3329-4802. PMID: 51873122 4. Luh GRIGGS, Zohra S, Pamela H. KIT and Melanoma: Biological Insights and Clinical Implications. [facility] Med J. 2020;61(7):562-571. PMID: 91081578 Test/Panel: KIT (c-KIT) Mutation Analysis MolDX CPT: 21441 AMA CPT: 84829 The Technical Component Processing, Analysis and Professional Component of this test was completed at [facility], [address] [place] [address], [place] / [id number] / [phone] / CLIA #[id number] / Technical Internship(s): Stephanie Sewell M.D. (Accession/CaseNo: [id number]) The performance characteristics of this test have been determined by [employer]. This test has not been approved by the FDA. The FDA has determined such clearance or approval is not necessary. This laboratory is CLIA certified to perform high complexity clinical testing. Images that may be included within this report are sales representative rural power of the patient but not all testing in its entirety and should not be used to render a result. The CPT codes provided with our test descriptions are based on [employer] and AMA guidelines and are for informational purposes only. Correct CPT coding is the sole responsibility of the billing constitution party. Please direct any questions regarding coding to the payer being billed. Diagnostician: Danny Gilbert MD. MPH PATIENT NAME: LUCERO ARCEO PATHOLOGY DATE OF : 64 REPORT #: [id number] PHYSICIAN: [facility] PCP: KELTON PHIPPS MD REPORT IS CONFIDENTIAL AND NOT TO BE RELEASED WITHOUT AUTHORIZATION [facility] [address] [place], [place] [address] Signed Pathologist Diagnostician: Akanksha Norton MD Pathologist Electronically Signed 09/26/2020 Copies: ~ PATIENT NAME: LUCERO ARCEO PATHOLOGY DATE OF : 64 REPORT #: [id number] PHYSICIAN: BENI PATHOLOGY PCP: KELTON PHIPPS MD REPORT IS CONFIDENTIAL AND NOT TO BE RELEASED WITHOUT AUTHORIZATION
== END 2020-09-12 12:56 | disposition home or self-care (01) ==
LOC: OPS 10:54 → DS 10:59 → OPS 12:00
PROVIDERS: ATTEND Specialist
PROC: 079T3ZX Drainage of Bone Marrow, Percutaneous Approach, Diagnostic (ICD-10-PCS; 2020-09-12)
PROC: 07DR3ZX Extraction of Iliac Bone Marrow, Percutaneous Approach, Diagnostic (ICD-10-PCS; principal; 2020-09-12 12:00)
DX: C90.00 Multiple myeloma not having achieved remission (principal); D47.3 Essential (hemorrhagic) thrombocythemia; E05.00 Thyrotoxicosis with diffuse goiter without thyrotoxic crisis or storm; G89.4 Chronic pain syndrome; G47.00 Insomnia, unspecified; M81.0 Age-related osteoporosis without current pathological fracture; E03.9 Hypothyroidism, unspecified; E55.9 Vitamin D deficiency, unspecified; I78.8 Other diseases of capillaries; R63.4 Abnormal weight loss; F17.210 Nicotine dependence, cigarettes, uncomplicated; Z79.890 Hormone replacement therapy; Z79.899 Other long term (current) drug therapy; Z88.5 Allergy status to narcotic agent; Z68.21 Body mass index [BMI] 21.0-21.9, adult
CPT/HCPCS: 80053; 82232; 82784; 83615; 83883; 84155; 84165; 85025; 99153; G0500; J2250; J3010; J7121